=== PATIENT | female | born 1990 | race Hispanic/Latino ===

== ENCOUNTER 2017-05-13 11:43 | Emergency (ER) | payer OTHER ==
[2017-05-13 11:56] VITALS: BP 115/71; PULSE 68; RESP 22; O2SAT 95
[2017-05-13] MEDS ORDERED: 0.9% Sodium Chloride 1,000 ML IV ONE (12:30)
[2017-05-13] MEDS ORDERED: Ondansetron 2 mg/mL 2 mL Inj IVPUSH ONE (12:30)
--- NOTE | 2017-05-13 12:53 | ED.REPORT ---
HPI-Headache Date of Service May 13, 2017 ED Provider: Rosendo Corado DO Pt is a 27 year old female with a history of migraines who presents to the ED complaining of a frontal headache onset yesterday. The pt noticed vertigo at 22: 00 last night while at work, then experienced a severe, sudden onset headache at 23:00. The headache was rated 10/10 prior to taking Tylenol, but reduced in severity after taking this medication. The headache and vertigo were still present this morning, though the headache is now a 4/10. She admits to nausea and vomiting this morning secondary to the vertigo, but denies any vision changes or neck pain. Pt's baseline migraines occur approximately every sic months and are gradual onset, but the pt is concerned because this headache was sudden in onset and associated with dizziness. Nursing Notes Stated Complaint: NAUSEA Chief Complaint: Headache Nursing Notes Reviewed: Yes Allergies: Coded Allergies: No Known Allergies (Unverified , 05/13/17) Scheduled PRN Meclizine (Bonine) 25 Mg Tab.chew 25 MG PO DAILY PRN PRN For Dizziness General Time Seen by MD: 12:00 Chief Complaint Headache Hx Obtained From: Patient Arrived By: Walk-in Sudden in Onset?: No Onset Occurred: 1 day ago Symptom Duration: Since onset Quality: Painful Severity: Current: Pain level 4 out of 10 Severity: Maximum: Pain level 10 out of 10 Recent Healthcare: No recent doctor visit, No recent hospitalization Similar Sx Previous: No Risk-Headache )( SAH Risk Stratification No Hypertension RF Statements: Risk factors reviewed )( IC Mass Risk Stratification No HIV RF Statements: Risk factors reviewed Past Medical History Past Medical History Migraines Past Surgical History Smoking History Never Smoker Social History Alcohol Use: "Social" Other Social History: Good social support Ambulatory Status Independent Review of Systems Review of Systems Note: Pt reports vertigo GI: Reports: Nausea, Vomiting, Denies: Abdominal pain Musculoskeletal: Denies: Back pain, Neck pain Skin: Denies Rash Neurologic: Reports: Dizziness, Headache (Frontal), Denies: Vision change Complete sys rev & neg: except as marked. Respiratory: Denies: Non-productive cough, Shortness of breath Cardiovascular: Denies: Chest pain Physical Exam Initial Vital Signs Vital Signs (First) Date Time Temp Pulse Resp B/P Pulse Ox O2 Delivery O2 Flow Rate FiO2 05/13/17 11:56 36.5 68 22 115/71 95 Room Air Initial VS: Reviewed General/Constitutional: Awake, Alert, No acute distress Head / Eyes: Atraumatic, Normocephalic, PERRL, EOMI Nystagmus with leftward gaze Neck: Atraumatic, Supple, Full range of motion No nuchal rigidity Neurologic: Oriented X3, Speech NL, No motor deficits, No sensory deficits, CN II - XII intact Strength and sensation intact Negative Romberg exam ENT: Atraumatic, Airway patent, Mucous membranes moist Respiratory / Chest: Atraumatic, Breath sounds NL, Breath sounds = bilat, No respiratory distress Cardiovascular: Heart rate NL, Regular rhythm, Heart sounds NL Abdomen: Atraumatic, Soft, Non-tender Skin: Atraumatic, Color NL, No rash, Warm, Dry Psychiatric: Affect NL, Mood NL Back: Atraumatic, Inspection NL, Full range of motion Upper Extremity / MS: Atraumatic, Inspection NL, Full range of motion Lower Extremity / Pelvis / MS: Atraumatic, Inspection NL, Full range of motion Interpretation & Diagnostics Lab Results Interpretation Result Diagram: 05/13/17 1300 05/13/17 1300 Test 05/13/17 13:00 White Blood Count 8.0th/mm3 (3.8-10.1) Red Blood Count 4.41mil/mm3 (3.90-5.20) Hemoglobin 13.8g/dL (12.0-15.6) Hematocrit 39.7% (35.0-46.0) Mean Corpuscular Volume 90.0fL (81-100) Mean Corpuscular Hemoglobin 31.3pg (27.0-35.0) Mean Corpuscular Hemoglobin Concent 34.8% (32.0-37.0) Red Cell Distribution Width 12.6% (12.3-15.4) Platelet Count 241bil/L (150-400) Neutrophils (%) (Auto) 84.0% (40-74) Lymphocytes (%) (Auto) 8.6% (14-46) Monocytes (%) (Auto) 6.6% (4-12) Eosinophils (%) (Auto) 0.5% (0-5) Basophils (%) (Auto) 0.1% (0-3) Erythrocyte Sedimentation Rate 20mm/hr (0-32) Hold Urine Received (Received) Sodium Level 141mEq/L (134-144) Potassium Level 3.7mEq/L (3.5-5.2) Chloride Level 106mEq/L (97-108) Carbon Dioxide Level 20mmol/L (18-29) Blood Urea Nitrogen 13mg/dL (6-20) Creatinine 0.55mg/dL (0.57-1.00) Estimat Glomerular Filtration Rate 190mL/min (>59) Glucose Level 113mg/dL (60-99) Calcium Level 9.4mg/dL (8.5-10.1) C-Reactive Protein 0.6mg/dL (0.0-0.5) CT Head Interpretation IMPRESSION: No acute intracranial abnormality. Dictated by: Mylene Stephenson M.D. on 05/13/2017 at 13:40 Approved by: Mylene Stephenson M.D. on 05/13/2017 at 13:43 Study: Head CT no contrast Interpretation / Wet Read by: Interpret - Radiologist Re-Eval/Medical Decision Med Decision/Clinical Course 27-year-old female with a history of migraines presents with severe vertigo that began last night, followed one hour later by the sudden onset of an acute frontal headache, different than her previous migraines. This headache seemed to improve with Tylenol and did not keep her from sleeping last night. Her pain is down to a 4 out of 10 currently when she arrived, and was completely gone after Toradol and Phenergan. As this headache was different than her usual headaches I ordered imaging of her brain which returned negative. Her neurologic exam on arrival and before discharge was completely normal, other than a small amount of nystagmus with leftward gaze. I considered subarachnoid hemorrhage but as she had no loss of consciousness, no meningismus, and the pain was not in the occipitonuchal region, this is less likely and I did not perform a lumbar puncture. Laboratory studies were essentially normal. Patient was reassured and feeling better at the time of discharge. She is discharged home with meclizine to help with vertigo should it recur and instruction to follow with her PCP, return if symptoms are worse Source of Hx: Old records Re-Evaluation/Progress : Time of Eval: 14:08 )( Patient Status: Condition improved Re-Evaluation/Progress Note: Pt rechecked. Pt reports headache is completely resolved and that the dizziness is improving. Negative Romberg exam. Appears slightly unsteady. Informed pt of plan for discharge. Pt understands and agrees with plan. F/U instructions and RTER warnings given. All questions addressed. Counseled Regarding: Diagnosis, Lab results, Need for follow-up, When/why to return to ED Discharge & Departure Impression: Primary Impression: Vertigo Additional Impression: Acute headache Headache type: unspecified Intractability: not intractable Qualified Code: R51 - Headache Disposition: Home Discharge Condition All VS Reviewed: Yes Condition: Stable Patient Instructions: Acute Headache (ED), Vertigo (ED) Additional Instructions: Thank you for trusting us with your medical care. There are no dangerous causes for your symptoms identified today after a thorough physical exam, lab work, and a head CT. I am glad that you are feeling better. I am prescribing meclizine which you can take for vertigo as needed. Please follow-up with your primary care provider early next week. Return to the ER for any new or worsening symptoms such as worsening headache, nausea and vomiting, focal neurologic deficit, or inability to ambulate. Sondra por confiar en nosotros con mccarty atencin mdica. No hay peligrosas causas de los sntomas identificados hoy despus de un examen fsico completo, anlisis de laboratorio y miesha hubert CT. Me alegro de que te sientes mejor. Estoy recetando meclizine que usted puede tahira para el vrtigo segn sea necesario. Por favor, seguimiento con mccarty mdico de atencin primaria la prxima semana. Volver a la sukhwinder de emergencias para cualquier sntoma nuevo o que empeora isreal empeoramiento de dolor de hubert, nuseas y vmitos, d ficit neurolgico focal o incapacidad para andar. Referrals: [facility] Scribe Attestation Portions of this note were transcribed by Maddison Magaña and Ace Chen. I, Dr. Corado personally performed the history, physical exam and medical decision -making; I reviewed and confirmed the accuracy of the information in the transcribed note. copies to: [facility] Rosendo Corado DO May 13, 2017 12:53 Maddison Magaña May 13, 2017 12:59 ACE CHEN May 13, 2017 15:12
--- NOTE | 2017-05-13 13:44 | DRSVH ---
PROCEDURE: CT BRAIN WITHOUT CONTRAST ([id number]) INDICATIONS: sudden onset headache, worst headache, vertigo TECHNIQUE: Noncontrast 4.5 mm thick angled axial sections acquired from the foramen magnum to the vertex, with c oronal reformats. COMPARISON: None. FINDINGS: Image quality: Excellent. CSF spaces: Basal cisterns are patent. No extra-axial fluid collections. Ventricles are normal in size and shape. Brain: No midline shift. No intracranial masses or hemorrhage. Guevara-white matter interface is norm al. Skull and face: Calvarium and visualized facial bones are intact, without suspicious lesions. Sinuses: Visualized sinuses and mastoids are clear. IMPRESSION: No acute intracranial abnormality. Dictated by: Mylene Stephenson M.D. on 05/13/2017 at 13:40 Approved by: Mylene Stephenson M.D. on 05/13/2017 at 13:43
[2017-05-13 13:48] LABS: BASOPHILS % (AUTO) 0.1 % (0-3); EOSINOPHILS % (AUTO) 0.5 % (0-5); MONOCYTES % (AUTO) 6.6 % (4-12); Mean Corpuscular Hemoglobin 31.3 pg (27.0-35.0); Platelet Count 241 bil/L (150-400)
[2017-05-13 13:56] LABS: ERYTHROCYTE SEDIMENTATION RATE 20 mm/hr (0-32)
[2017-05-13] MEDS ORDERED: MECL-114 PO ×2 (14:50→14:52)
[2017-05-13 15:11] VITALS: BP 112/71; PULSE 62; RESP 15; O2SAT 98
== END 2017-05-13 15:12 | disposition home or self-care (01) ==
LOC: SED 11:43
DX: R42 Dizziness and giddiness (principal); R51 Headache
CPT/HCPCS: 36415; 70450; 80048; 81025; 85025; 85651; 86140; 96361; 96374; 96375; 99285; J1885; J2405; J7030